=== PATIENT | female | born 1950 | race Caucasian/White ===

== ENCOUNTER 2019-09-09 16:06 | Inpatient (IN) | payer OTHER ==
[~2019-09-09] VITALS: Ht 162.6 cm; Wt 86.2 kg
[2019-09-09 16:11] VITALS: Ht 162.6 cm; Wt 86.2 kg
[2019-09-09 17:40] LABS: BASOPHIL % 0.1 % (0-2); PLATELET COUNT 295 x10^3mcL (130-400); RED CELL DISTRIBUTION WIDTH 13.1 % (11.5-14.5)
[2019-09-09 17:54] LABS: CALCIUM 9.1 mg/dL (8.5-10.1); CARBON DIOXIDE 37.8 mmol/L (21-32); CHLORIDE SERUM 96 mmol/L (98-107); CREATININE SERUM 1.3 mg/dL (0.6-1.0); GFR1 43 mL/min; GLUCOSE SERUM 230 mg/dL (74-106); POTASSIUM SERUM 3.9 mmol/L (3.5-5.1); SODIUM SERUM 139 mmol/L (136-145)
[2019-09-09 17:58] LABS: ALBUMIN 3.6 g/dL (3.4-5.0); ALKALINE PHOSPHATASE 98 U/L (46-116); ALT/SGPT 18 U/L (14-59); AST/SGOT 20 U/L (15-37); BILIRUBIN TOTAL 0.69 mg/dL (0.20-1.00); LIPASE 353 IU/L (73-393)
[2019-09-09 18:00] LABS: TOTAL PROTEIN, SERUM 8.4 g/dL (6.4-8.2)
[2019-09-09 19:16] LABS: UA SPECIFIC GRAVITY 1.025 (1.005-1.035); microscopic required? YES; urine erythrocyte NEGATIVE (NEGATIVE)
[2019-09-09 23:18] VITALS: BP 139/69
[2019-09-10 05:16] VITALS: BP 145/70
[2019-09-10 06:35] LABS: BILIRUBIN TOTAL 0.34 mg/dL (0.20-1.00); CALCIUM 8.2 mg/dL (8.5-10.1); CREATININE SERUM 1.4 mg/dL (0.6-1.0); POTASSIUM SERUM 4.8 mmol/L (3.5-5.1); TOTAL PROTEIN, SERUM 6.4 g/dL (6.4-8.2)
[2019-09-10 06:43] LABS: ALBUMIN 2.8 g/dL (3.4-5.0); CARBON DIOXIDE 43.7 mmol/L (21-32); MAGNESIUM 4.9 mg/dL (1.8-2.4)
[2019-09-10 07:48] VITALS: BP 158/69
[2019-09-10 16:15] VITALS: BP 158/71
[2019-09-10 20:31] VITALS: BP 140/69
[2019-09-11 06:03] VITALS: BP 146/67
[2019-09-11 06:04] LABS: BILIRUBIN TOTAL 0.5 mg/dL (0.20-1.00); CALCIUM 7.2 mg/dL (8.5-10.1); CARBON DIOXIDE 36.7 mmol/L (21-32); CREATININE SERUM 1.4 mg/dL (0.6-1.0); POTASSIUM SERUM 4.5 mmol/L (3.5-5.1)
[2019-09-11 06:05] LABS: ALBUMIN 2.3 g/dL (3.4-5.0); TOTAL PROTEIN, SERUM 5.8 g/dL (6.4-8.2)
[2019-09-11 06:06] LABS: MAGNESIUM 4.7 mg/dL (1.8-2.4)
[2019-09-11 12:46] LABS: BASOPHIL % 0.1 % (0-2); PLATELET COUNT 213 x10^3mcL (130-400); RED CELL DISTRIBUTION WIDTH 13.7 % (11.5-14.5)
[2019-09-11 16:22] VITALS: BP 122/57
[2019-09-11 20:42] VITALS: BP 117/62
[2019-09-12 05:57] VITALS: BP 153/71
[2019-09-12 06:33] LABS: BASOPHIL % 0.2 % (0-2); PLATELET COUNT 203 x10^3mcL (130-400); RED CELL DISTRIBUTION WIDTH 13.6 % (11.5-14.5)
[2019-09-12 06:56] LABS: ALBUMIN 1.9 g/dL (3.4-5.0); BILIRUBIN DIRECT 0.18 mg/dL (0.0-0.2); BILIRUBIN TOTAL 0.4 mg/dL (0.20-1.00); CALCIUM 7.2 mg/dL (8.5-10.1); CARBON DIOXIDE 32.5 mmol/L (21-32); CREATININE SERUM 1.3 mg/dL (0.6-1.0); MAGNESIUM 3.9 mg/dL (1.8-2.4); POTASSIUM SERUM 5.4 mmol/L (3.5-5.1); TOTAL PROTEIN, SERUM 5.4 g/dL (6.4-8.2)
[2019-09-12 09:49] VITALS: BP 131/61
[2019-09-12 12:48] VITALS: BP 145/60
[2019-09-12 17:00] VITALS: BP 136/64
[2019-09-12 19:49] VITALS: BP 174/81
[2019-09-12 22:00] VITALS: BP 145/73
[2019-09-13 05:51] VITALS: BP 119/65
[2019-09-13 07:07] LABS: BASOPHIL % 0.1 % (0-2); PLATELET COUNT 191 x10^3mcL (130-400); RED CELL DISTRIBUTION WIDTH 13.5 % (11.5-14.5)
[2019-09-13 07:22] LABS: BILIRUBIN DIRECT 0.13 mg/dL (0.0-0.2); BILIRUBIN TOTAL 0.4 mg/dL (0.20-1.00); CALCIUM 7.7 mg/dL (8.5-10.1); CARBON DIOXIDE 32.8 mmol/L (21-32); CREATININE SERUM 1.1 mg/dL (0.6-1.0); MAGNESIUM 2.9 mg/dL (1.8-2.4); POTASSIUM SERUM 4.5 mmol/L (3.5-5.1)
[2019-09-13 07:34] LABS: ALBUMIN 1.8 g/dL (3.4-5.0); TOTAL PROTEIN, SERUM 5.6 g/dL (6.4-8.2)
[2019-09-13 08:47] VITALS: BP 139/77
[2019-09-13 13:55] VITALS: BP 139/77
[2019-09-13 14:11] VITALS: BP 139/77
[2019-09-13 17:08] VITALS: BP 146/86
[2019-09-13 21:07] VITALS: BP 149/76
[2019-09-14 05:24] VITALS: BP 144/76
[2019-09-14 06:32] LABS: BILIRUBIN TOTAL 0.28 mg/dL (0.20-1.00); CALCIUM 7.9 mg/dL (8.5-10.1); CARBON DIOXIDE 31.7 mmol/L (21-32); MAGNESIUM 2.5 mg/dL (1.8-2.4); POTASSIUM SERUM 4.4 mmol/L (3.5-5.1); TOTAL PROTEIN, SERUM 6.2 g/dL (6.4-8.2)
[2019-09-14 06:44] LABS: ALBUMIN 1.8 g/dL (3.4-5.0)
[2019-09-14 08:01] VITALS: BP 156/79
[2019-09-14 12:06] VITALS: BP 157/77
[2019-09-14 16:31] VITALS: BP 170/78
[2019-09-14 18:09] VITALS: BP 160/66
[2019-09-14 21:25] VITALS: BP 162/78
[2019-09-15 05:47] VITALS: BP 173/81
[2019-09-15 08:05] VITALS: BP 174/84
[2019-09-15 12:12] VITALS: BP 114/48
[2019-09-15 17:22] VITALS: BP 159/82
[2019-09-15 21:14] VITALS: BP 158/86
[2019-09-16] VITALS (7 sets, daily range): BP systolic 113–174; BP diastolic 58–86
[2019-09-16 06:52] LABS: BASOPHIL % 0.3 % (0-2); PLATELET COUNT 198 x10^3mcL (130-400); RED CELL DISTRIBUTION WIDTH 12.9 % (11.5-14.5)
[2019-09-16 07:48] LABS: ALKALINE PHOSPHATASE 52 U/L (46-116); ALT/SGPT 16 U/L (14-59); AST/SGOT 10 U/L (15-37); BILIRUBIN DIRECT 0.12 mg/dL (0.0-0.2); BILIRUBIN TOTAL 0.24 mg/dL (0.20-1.00); CARBON DIOXIDE 30.3 mmol/L (21-32); CHLORIDE SERUM 103 mmol/L (98-107); CREATININE SERUM 0.8 mg/dL (0.6-1.0); GFR1 > 60 mL/min; GLUCOSE SERUM 190 mg/dL (74-106); MAGNESIUM 1.7 mg/dL (1.8-2.4); PHOSPHOROUS 2.9 mg/dL (2.5-4.9); POTASSIUM SERUM 3.6 mmol/L (3.5-5.1); SODIUM SERUM 139 mmol/L (136-145)
[2019-09-16 07:51] LABS: ALBUMIN 1.7 g/dL (3.4-5.0); TOTAL PROTEIN, SERUM 5.3 g/dL (6.4-8.2)
[2019-09-17 05:24] VITALS: BP 162/67
[2019-09-17 06:55] VITALS: BP 140/68
[2019-09-17 08:32] VITALS: BP 142/72
[2019-09-17 12:30] VITALS: BP 161/76
[2019-09-17 13:40] VITALS: BP 161/76
[2019-09-17 14:06] VITALS: BP 142/68
== END 2019-09-17 14:53 | disposition home health service (06) | DRG 329 ==
LOC: ED 16:06 → MU 19:47 → EDBEDREQ 19:48 → MU 22:40
PROVIDERS: Emergency Medicine; Internal Medicine; Surgery; ADMIT Internal Medicine Pulmonary Disease
PROC: 0DJD8ZZ Inspection of Lower Intestinal Tract, Via Natural or Artificial Opening Endoscopic (ICD-10-PCS; 2019-09-10)
PROC: 0DNN0ZZ Release Sigmoid Colon, Open Approach (ICD-10-PCS; 2019-09-11)
PROC: 0DBU0ZZ Excision of Omentum, Open Approach (ICD-10-PCS; 2019-09-11)
PROC: 0D9L8ZZ Drainage of Transverse Colon, Via Natural or Artificial Opening Endoscopic (ICD-10-PCS; 2019-09-11)
PROC: 0D1L0Z4 Bypass Transverse Colon to Cutaneous, Open Approach (ICD-10-PCS; principal; 2019-09-11 07:30)
DX: K56.50 Intestinal adhesions [bands], unspecified as to partial versus complete obstruction (principal); N17.0 Acute kidney failure with tubular necrosis; K57.30 Diverticulosis of large intestine without perforation or abscess without bleeding; E86.0 Dehydration; E66.9 Obesity, unspecified; Z68.32 Body mass index [BMI] 32.0-32.9, adult; Z90.710 Acquired absence of both cervix and uterus; Z90.49 Acquired absence of other specified parts of digestive tract
CPT/HCPCS: 45378; 82962; 97116-GP; 97530-GP; G0378; J0330; J0360; J0690; J1170; J1200; J1610; J1644; J1815; J1956; J2250; J2270; J2310; J2405; J2550; J2704; J2710; J2765; J3010; J3490; J7030; J7131; Q0092